=== PATIENT | male | born 1970 | race African-American/Black ===

== ENCOUNTER 2023-01-07 22:10 | Emergency (ER) | payer SELFPAY ==
[~2023-01-07] VITALS: Ht 188 cm; Wt 113.0 kg
[~2023-01-07 22:10] MED LIST: ALBU6.7H3 ORI; DEX6 PO; METF-416 MT
[2023-01-07] MEDS ORDERED: ASPIRIN 81MG TABLET PO ONE (22:15)
[2023-01-07 22:16] VITALS: BP 122/81
== END 2023-01-08 03:15 | disposition left against medical advice (07) ==
LOC: ER 22:10
DX: Z53.21 Procedure and treatment not carried out due to patient leaving prior to being seen by health care provider (principal)
CPT/HCPCS: 71045; 93005; 99281; Z7610